=== PATIENT | male | born 1995 | race Caucasian/White ===

== ENCOUNTER 2024-04-30 17:35 | Emergency (ER) | payer OTHER, SELFPAY ==
[2024-04-30 17:36] VITALS: BP 121/65; PULSE 92; RESP 20; TEMP 36.8; O2SAT 97; BMI 24.4
[2024-04-30 17:40] VITALS: BP 121/65; PULSE 67; O2SAT 99
--- NOTE | 2024-04-30 17:46 | ED_ITS ---
Discharge Plan Disposition Patient Disposition: Home, Self-Care Condition: Good Referrals Follow up/Referrals: Provider,Referral, MD [Primary Care Provider] - See instructions ([facility] ophthalmology on Thursday or Thursday, ophthalmology at will contact patient) Activity Restrictions/Add. Instructions Additional Instructions/Restrictions: Wears glasses and use erythromycin ointment 3 times a day. If any other problems or concerns please return to the ED. [facility] will call you Thursday or Thursday for follow-up with ophthalmology. Clinical Impressions Clinical Impression: Corneal abrasion, Acute foreign body of cornea Instructions Patient Instructions: DI for Eye Pain Print Language Print Language: Malagasy Discharge ED Provider: Luc Bradford Adult HPI <Mabel Lim (ED), SIGNAL INTELLIGENCE/ELECTRONIC WARFARE - Last Filed: 04/30/24 20:49> General Chief complaint: Eye Problems Stated complaint: metal in eye Time Seen by Provider: 04/30/24 17:38 History of Present Illness HPI narrative: This is a 28-year-old male who presents to the ED today for having a piece of metal in his right eye. He presented to [facility] and they told him that they did not have an surveillance system monitor to remove the metal from his eye therefore they put tetracaine drops and sent him here to be evaluated. They told him that we had an surveillance system monitor to remove the metal. Patient is very photosensitive. He says the tetracaine has helped some. Patient was using a grinder gear and did not have his glasses on. He says he forgot to wear them . [facility] <Mabel Lim (ED), SIGNAL INTELLIGENCE/ELECTRONIC WARFARE - Last Filed: 04/30/24 20:49> [facility] Disclaimer: The information contained in this section may have been updated after the patient was seen, as this information can be updated by other users. Social History (Updated 04/30/24 @ 20:49 by Mabel Lim (ED), SIGNAL INTELLIGENCE/ELECTRONIC WARFARE) Smoking Status: Current every day smoker alcohol intake: never current occupational status: employed Travel in the last 8 weeks: None <Mabel Lim (KIM), SIGNAL INTELLIGENCE/ELECTRONIC WARFARE - Last Filed: 04/30/24 20:49> ROS Obtained: Yes Systems reviewed as appropriate & no additional complaints except as documented Constitutional Constitutional: Reports as per HPI Physical Exam <Mabel Lim (ED), SIGNAL INTELLIGENCE/ELECTRONIC WARFARE - Last Filed: 04/30/24 20:49> General General appearance: alert and in distress Comment: From metal in right eye Head Head exam: atraumatic Eye Eye exam: Present EOMI, conjunctival redness and conjunctival injection Expanded Eye Exam Eyelids: right: erythema and swelling eyelids Sclera/Conjunctival: right: injection, foreign body (Metal) and tenderness Respiratory Respiratory exam: Present normal lung sounds bilaterally Cardiovascular Cardiovascular exam: Present regular rate Neurological Exam Neurological exam: Present alert and oriented X3 Psychiatric Psychiatric exam: Present normal affect Skin Skin exam: Present warm and dry Medical Decision Making <Mabel Noriegasam (ED), SIGNAL INTELLIGENCE/ELECTRONIC WARFARE - Last Filed: 04/30/24 20:49> Medical Records Screening: Per USPSTF and CDC recommendations, given the prevalence of disease in our region, it is our hospital?s policy to screen for HIV and viral Hepatitis for all patients aged 18 and over and those with ongoing risk factors. [place] Inquiry Pt receiving controlled substance: No [place] was queried for this patient: No Vital Signs: 04/30/24 17:36 04/30/24 17:40 04/30/24 18:55 Temperature 98.2 F Temperature Source Oral Pulse Rate 67 92 H Pulse Rate [Right Radial] 92 H Respiratory Rate 20 16 Blood Pressure 121/65 110/63 Blood Pressure [Right Arm] 121/65 Blood Pressure Mean 85 74 Blood Pressure Mean [Right Arm] 83 02 Sat by Pulse Oximetry 97 99 97 Oxygen Delivery Method Room Air Room Air 04/30/24 19:01 04/30/24 19:46 Temperature 98.3 F Temperature Source Oral Pulse Rate 74 74 Pulse Rate [Right Radial] Respiratory Rate 18 Blood Pressure 116/63 138/77 Blood Pressure [Right Arm] Blood Pressure Mean 79 Blood Pressure Mean [Right Arm] 02 Sat by Pulse Oximetry 97 Oxygen Delivery Method Room Air Room Air Orders (Tests/Meds): ED MEDICATIONS Discontinued Medications Generic Name Dose Route Start Last Admin Trade Name Freq PRN Reason Stop Dose Admin Erythromycin 0.5 gm 04/30/24 19:16 04/30/24 19:31 Erythromycin Base 1 Gm Oint...G. OP 04/30/24 19:17 0.5 gm ONCE ONE Administration Medical Decision Narrative: Patient is very photosensitive and dificult to initially assess, I instilled tetracaine and stained the right eye and discussed with Dr. Bradford who is assesing patient currently. ophthalmology consulted by about follow-up care. Patient will hear from them Thursday or Thursday about follow-up care. Most likely on Thursday according to . He is to use erythromycin ointment 3 times a day. Discussed this with patient. Insert review patient is a 28-year-old male presenting to the emergency department for evaluation of metal in his right eye since yesterday. Patient is hemodynamically stable and nontoxic-appearing upon arrival, afebrile. Differential diagnosis includes foreign object in eye. Dr. Bradford has removed the metal from his eye and washed out the high removing most of the rust ring. Patient does have increased visual acuity. We did call for ophthalmology follow-up and they are going to call him on Thursday or Thursday and they recommend erythromycin ointment 3 times a day until then. Patient's intraocular pressure was 11.1 in the right eye and 10 in the left eye. Patient is safe for discharge home <Luc Bradford MD - Last Filed: 04/30/24 21:25> Vital Signs: 04/30/24 17:36 04/30/24 17:40 04/30/24 18:55 Temperature 98.2 F Temperature Source Oral Pulse Rate 67 92 H Pulse Rate [Right Radial] 92 H Respiratory Rate 20 16 Blood Pressure 121/65 110/63 Blood Pressure [Right Arm] 121/65 Blood Pressure Mean 85 74 Blood Pressure Mean [Right Arm] 83 02 Sat by Pulse Oximetry 97 99 97 Oxygen Delivery Method Room Air Room Air 04/30/24 19:01 04/30/24 19:46 Temperature 98.3 F Temperature Source Oral Pulse Rate 74 74 Pulse Rate [Right Radial] Respiratory Rate 18 Blood Pressure 116/63 138/77 Blood Pressure [Right Arm] Blood Pressure Mean 79 Blood Pressure Mean [Right Arm] 02 Sat by Pulse Oximetry 97 Oxygen Delivery Method Room Air Room Air Orders (Tests/Meds): ED MEDICATIONS Discontinued Medications Generic Name Dose Route Start Last Admin Trade Name Freq PRN Reason Stop Dose Admin Erythromycin 0.5 gm 04/30/24 19:16 04/30/24 19:31 Erythromycin Base 1 Gm Oint...G. OP 04/30/24 19:17 0.5 gm ONCE ONE Administration Medical Decision Narrative: Patient is very photosensitive and dificult to initially assess, I instilled tetracaine and stained the right eye and discussed with Dr. Bradford who is assesing patient currently. ophthalmology consulted by about follow-up care. Patient will hear from them Thursday or Thursday about follow-up care. Most likely on Thursday according to . He is to use erythromycin ointment 3 times a day. Discussed this with patient. patient is a 28-year-old male presenting to the emergency department for evaluation of metal in his right eye since yesterday. Patient is hemodynamically stable and nontoxic-appearing upon arrival, afebrile. Differential diagnosis includes foreign object in eye. Dr. Bradford has removed the metal from his eye and washed out the high removing most of the rust ring. Patient does have increased visual acuity. We did call [facility] for ophthalmology follow-up and they are going to call him on Thursday or Thursday and they recommend erythromycin ointment 3 times a day until then. Patient's intraocular pressure was 11.1 in the right eye and 10 in the left eye. Patient is safe for discharge home I, Luc Bradford MD, evaluated the patient. Patient was noted to have a small metallic foreign body in his cornea just medial to the pupil. This was able to be removed with irrigation, cotton swab as well as a 20-gauge bevel IV needle. There was a residual rust ring that was unable to be removed. No other foreign bodies were noted within the eyelids or throughout the rest of the eye. Fluorescein staining did not reveal any concern for open globe injury as there was no Kan sign. No additional corneal abrasions were noted. Discussions we re had with the ophthalmology team is felt that he would benefit from close follow-up early next week regarding the rust ring. They agreed and stated that they will call him Thursday to schedule an appointment either that day or the following day. They recommended topical antibiotic ointment. Patient was given erythromycin ointment here in the emergency department and this plan was discussed with him. He demonstrated understanding. All questions were answered. He was then discharged from the emergency department with plan as mentioned above. Procedures <Luc Bradford MD - Last Filed: 04/30/24 21:25> Eye Exam/FB Removal Location: eye (R) Topical anesthetic used: tetracaine Fluorescein Stick(s) used: Yes Procedure performed under: direct visualization with magnification Foreign body: metal Evidence of corneal penetration: Yes Technique: irrigation, cotton tip swab and needle Post-procedure medication: ophthalmic antibiotic Patient tolerated procedure: well Complications: residual rust ring Critical Care <Mabel Lim (ED), SIGNAL INTELLIGENCE/ELECTRONIC WARFARE - Last Filed: 04/30/24 20:49> Critical Care Time Critical Care Time: No <Luc Bradford MD - Last Filed: 04/30/24 21:25> Critical Care Time Critical Care Time: Yes Attestation: On 04/30/24, the high probability of a clinically significant, sudden or life threatening deterioration of the following system(s) required my full and direct attention, intervention and personal management. The time I documented below is in addition to time spent performing reported procedures but includes the following listed in this critical care notation. Total Time Total Critical Care Time: 35
--- NOTE | 2024-04-30 18:31 | PC.NURSE ---
Called [facility] to consult with ophthalmology per Dr. Bradford. [facility] said they would give us a call back.
[2024-04-30 18:55] VITALS: BP 110/63; PULSE 92; RESP 16; O2SAT 97
--- NOTE | 2024-04-30 18:57 | PC.NURSE ---
[facility] speaking with ER at this time
[2024-04-30 19:01] VITALS: BP 116/63; PULSE 74; O2SAT 97
--- NOTE | 2024-04-30 19:09 | PC.NURSE ---
per [facility], Pt will be contacted next week for follow up at
[2024-04-30] MEDS: ERYTHROMYCIN BASE 1 GM OINT...G. 0.5 GM OP (19:31)
[2024-04-30 19:46] VITALS: BP 138/77; PULSE 74; RESP 18; TEMP 36.8; O2SAT 97
== END 2024-04-30 19:48 | disposition home or self-care (01) ==
PROVIDERS: Emergency Provider Student in an Organized Health Care Education/Training Program
DX: S05.00XA Injury of conjunctiva and corneal abrasion without foreign body, unspecified eye, initial encounter (principal); H57.11 Ocular pain, right eye; H53.149 Visual discomfort, unspecified
CPT/HCPCS: 65220; 99285